=== PATIENT | female | born 1955 | race Caucasian/White ===

== ENCOUNTER → 2020-07-08 10:07 | Outpatient (CLI) | payer OTHER, SELFPAY ==
--- NOTE | 2020-07-08 | DI.RAD.S_ITS ---
PROCEDURE: XR DEXA AXIAL SKELETON INDICATIONS: Age-related osteoporosis without current pathologi COMPARISON: None. FINDINGS: This blank DEXA report has been sent in error by the PACS system. The correct and complete report will be forthcoming in 1-2 days. Thank you for your patience and understanding. Dictated by: Aura Grider MD, PhD on 07/08/2020 at 15:57 Approved by: Aura Grider MD, PhD on 07/08/2020 at 15:57
== END ==
PROVIDERS: Family Provider Family Medicine; PCP Family Medicine; Referring Provider Family Medicine; Visit Provider Family Medicine
DX: M81.0 Age-related osteoporosis without current pathological fracture (principal); Z78.0 Asymptomatic menopausal state; Z82.62 Family history of osteoporosis
CPT/HCPCS: 77080

== ENCOUNTER → 2021-10-27 10:32 | Outpatient (CLI) | payer MEDICARE, OTHER, SELFPAY ==
--- NOTE | 2021-10-27 10:36 | DI.RAD.S_ITS ---
PROCEDURE: XR THORACIC SPINE 2V INDICATIONS: BACK PAIN TECHNIQUE: 3 views of the thoracic spine were acquired. COMPARISON: None. FINDINGS: Bones: No fractures or dislocations. No suspicious bony lesions. 12 pairs of ribs are noted, and appear intact where visualized. Midthoracic disc space narrowing and anterior osteophytes noted. Soft tissues: No paravertebral stripe thickening. IMPRESSION: Mild degenerative disc disease without fracture or malalignment. Approved by: David Huerta M.D. on 10/27/2021 at 11:51
--- NOTE | 2021-10-27 10:36 | DI.RAD.S_ITS ---
PROCEDURE: XR LUMBAR SPINE 2-3V INDICATIONS: BACK PAIN TECHNIQUE: 3 views of the lumbar spine were acquired. COMPARISON: None. FINDINGS: Bones: 5 wea-uje-kwqzpbe vertebrae are present. There is nfob-sf-tjetsqqy rightward curvature of lumbar spine centered at L3 level. No vertebral body compression fractures. Degenerative endplate changes and bilateral facet arthrosis throughout lumbar spine is seen. No suspicious bony lesions. Soft tissues: Overlying bowel gas pattern is normal. No suspicious soft tissue calcifications. IMPRESSION: Knzj-ev-sdyfpmje scoliosis. No acute fracture or dislocation. Degenerative disc disease throughout lumbar spine. Dictated by: Latrell Norton M.D. on 10/27/2021 at 12:36 Approved by: Latrell Norton M.D. on 10/27/2021 at 12:36
--- NOTE | 2021-10-27 10:36 | DI.RAD.S_ITS ---
PROCEDURE: XR WRIST LT 2V INDICATIONS: LEFT WRIST PAIN TECHNIQUE: 2 views of the wrist were acquired. COMPARISON: None. FINDINGS: Bones: No fractures or dislocations. No suspicious bony lesions. Soft tissues: No suspicious soft tissue calcifications. IMPRESSION: No acute osseous abnormality. Dictated by: Aldo Olsen M.D. on 10/27/2021 at 12:06 Approved by: Aldo Olsen M.D. on 10/27/2021 at 12:07
== END ==
PROVIDERS: Family Provider Family Medicine; PCP Family Medicine; Referring Provider Family Medicine; Visit Provider Family Medicine
DX: M51.34 Other intervertebral disc degeneration, thoracic region (principal); M51.36 Other intervertebral disc degeneration, lumbar region; M25.532 Pain in left wrist; M54.9 Dorsalgia, unspecified
CPT/HCPCS: 72070; 72100; 73100

== ENCOUNTER → 2022-09-25 09:35 | Outpatient (CLI) | payer MEDICARE, OTHER, SELFPAY | PROVIDERS: Family Provider Family Medicine; PCP Family Medicine; Referring Provider Family Medicine; Visit Provider Family Medicine | DX: M81.0 Age-related osteoporosis without current pathological fracture (principal); Z78.0 Asymptomatic menopausal state | CPT/HCPCS: 77080 ==

== ENCOUNTER 2022-10-30 07:22 | Day surgery (SDC) | payer MEDICARE, OTHER, SELFPAY ==
--- NOTE | 2022-10-30 | PATH_ITS ---
[facility] Accession Number: [id number] No. of containers..02 Tissue . 01 Material submitted: . PART A: colon - CECAL POLYP PART B: colon - ASCENDING COLON POLYPS X2 . 01 Clinical history: . SCREENING COLONOSCOPY . 01 Diagnosis: A. Cecum, Polyp, Biopsy: Sessile serrated adenoma. . B. Ascending Colon, Polyps x2, Biopsies: Sessile serrated adenoma in three of multiple fragments. MRV 11/05/2022 1544 Local . 01 Electronically signed: . Carolann Linda MD, Pathologist NPI- [id number] . 01 Gross description: . A. Received in formalin, labeled with the patient's name, , and cecal polyp, and consists of two najera soft tissue fragments ranging from 0.3 cm to 0.4 cm in greatest dimension. Submitted entirely in cassette A1. B. Received in formalin, labeled with the patient's name, , and ascending polyps x2, and consists of multiple najera soft tissue fragments aggregating to 1.3 x 1.0 x 0.1 cm. The specimen is filtered into a biopsy bag and submitted entirely in cassette B1. ([id number]) /FRR 10/31/2022 1356 Local . 01 Pathologist provided ICD-10: D12.0, D12.2 . 01 CPT . 195867, 165491 Specimen Comment: A courtesy copy of this report has been sent to [facility] Pathology Performed at: 01 [facility] [address] [place] [address] [address] [facility], [place], [place] [id number] MD Mart Zavaleta MD Phone: [phone]
[2022-10-30 07:50] VITALS: BP 138/85; PULSE 68; RESP 16; TEMP 36.2; O2SAT 98; BMI 26.2
[2022-10-30] MEDS: LACTATED RINGERS 1,000 ML 150 ML IV (08:09)
--- NOTE | 2022-10-30 08:09 | SUR.PREOP ---
Patient diaphoretic after IV insertion; denies nausea, CP or SOB; placed patient supine and cool cloth provided. Recheck of BP 115/70; LR infusing to assist with drop in blood pressure.
--- NOTE | 2022-10-30 08:22 | P.HP_ITS ---
History of Present Illness History of Present Illness Date Patient Seen: 10/30/22 Chief complaint: Screening Colonoscopy Narrative: Ms. Saleh presents today for screening colonoscopy. Has had colonoscopy before 10 years ago and it was clean she was told to follow up in 10 years for carlos a nued screening. She has no family history of colon cancer no symptoms of bleeding or changes in bowel habits are that are concerning for her. Patient History Family & Social History Social History: household members spouse Tobacco & Substance use: Smoking Status Never smoker alcohol intake frequency holiday/special occasion Substance Use Type does not use Meds Home Medications and Allergies Allergies Allergy/AdvReac Type Severity Reaction Status Date / Time No Known Drug Allergies Allergy Verified 10/30/22 07:50 Exam Vital Signs (past 8 hours): - 10/30/22 07:50 Temperature 97.1 F L Pulse Rate 68 Respiratory Rate 16 Blood Pressure 138/85 Pulse Oximetry 98 Oxygen Delivery Method Room Air Oxygen Delivery Method Room Air Const General: cooperative, healthy appearing and comfortable HENMT Head: normal to inspection Eyes General: appearance normal, both eyes and all related structures Resp Effort & Inspection: normal respiratory effort and able to speak in complete sentences GI Palpation: soft and No tender Assessment & Plan Assessment and plan (1) Colon cancer screening: Status: Acute Assessment & Plan narrative: I discussed the risks benefits and alternatives of screening colonoscopy. She understands the risks including but not limited to perforation of the colon and incomplete exam. She would like to proceed today. Time Spent With Patient Critical Care time: I spent a total of [] minutes of critical care time on this patient's care today; this time is exclusive of procedural time.
[2022-10-30 09:02] VITALS: BP 106/61; PULSE 65; RESP 16; TEMP 36.2; O2SAT 98
[2022-10-30 09:08] VITALS: BP 98/57; PULSE 64; RESP 15; O2SAT 95
--- NOTE | 2022-10-30 09:13 | PM.OP.COLON ---
Procedure & Clinicians Study performed: Colonoscopy and biopsy Same procedure as scheduled: Yes Indications: Screening for colon cancer. No family history or increased risk. Surgeon: Alison oCllins Procedure Notes Procedure in detail: Patient was taken to the endoscopy suite and placed in a left lateral decubitus position. A time-out was performed. With the help of an anesthesiologist conscious sedation was performed. Digital rectal exam was performed and there were no strictures or masses. The colonoscope was introduced into the anal canal and advanced through to the cecum. A photograph was taken of the appendiceal orifice. There was a small polyp right next to the appendiceal orifice which was biopsied and removed in total with the forceps. Upon withdrawal there were 2 additional polyps right at the junction of the cecum and the ascending colon. They were possibly of 0.9 cm in length but were both oblong shaped, and were quite narrow. Several sweeps with a biopsy forceps remove both disease polyps in total. They were sent together in the same specimen jar. Continued withdrawal of the scope revealed no further polyps. The total withdrawal time was 19 minutes. And some photographs were taken of a few scattered diverticula in the sigmoid colon. As well as a photograph of hemorrhoidal piles seen on retroflexion. The scope was then withdrawn. Patient tolerated the procedure well and went in good condition to the postoperative care unit the [place] bowel prep score was 3, she had an excellent prep. Specimen(s): other (1. Cecal polyp 2. Ascending colon polyps x2)
[2022-10-30 09:16] VITALS: BP 114/65; PULSE 59; RESP 12; O2SAT 99
== END 2022-10-30 09:30 | disposition home or self-care (01) ==
PROVIDERS: Family Provider Family Medicine; PCP Family Medicine; Referring Provider Surgery; Visit Provider Surgery
PROC: 0DJD8ZZ Inspection of Lower Intestinal Tract, Via Natural or Artificial Opening Endoscopic (ICD-10-PCS; CPT 45378; principal; 2022-10-30 08:30)
DX: Z12.11 Encounter for screening for malignant neoplasm of colon (principal); K57.30 Diverticulosis of large intestine without perforation or abscess without bleeding; K64.4 Residual hemorrhoidal skin tags; D12.0 Benign neoplasm of cecum; D12.2 Benign neoplasm of ascending colon
CPT/HCPCS: 45380; J2704; J3010

== ENCOUNTER → 2024-05-09 11:41 | Outpatient (CLI) | payer MEDICARE, OTHER, SELFPAY ==
--- NOTE | 2024-05-09 11:44 | DI.RAD.S_ITS ---
PROCEDURE: XR ELBOW RT MIN 3V INDICATIONS: Medial epicondylitis, right elbow TECHNIQUE: 3 views of the elbow were acquired. COMPARISON: None. FINDINGS: Bones: No fractures or dislocations. No suspicious bony lesions. Soft tissues: No elbow joint effusion. No suspicious soft tissue calcifications. IMPRESSION: No acute bony abnormality or significant joint effusion. Dictated by: Jb Coon M.D. on 05/09/2024 at 15:40 Approved by: Jb Coon M.D. on 05/09/2024 at 15:41
== END ==
LOC: RAD 11:42
PROVIDERS: Family Provider Family Medicine; PCP Family Medicine; Referring Provider Family Medicine; Visit Provider Family Medicine
DX: M77.01 Medial epicondylitis, right elbow (principal)
CPT/HCPCS: 73080

== ENCOUNTER → 2024-09-15 09:30 | Outpatient (CLI) | payer MEDICARE, OTHER, SELFPAY ==
--- NOTE | 2024-09-15 | DI.RAD.S_ITS ---
PROCEDURE: XR DEXA AXIAL SKELETON INDICATIONS: Age-related osteoporosis without current pathological fractu COMPARISON: [facility], CR, XR DEXA AXIAL SKELETON, 09/25/2022, 9:59. FINDINGS: Lumbar Spine: Bone mineral density 0.749 g/cm2, T score -2.7. There is interval 3.6 percent decrease in total lumbar spine bone mineral density. Left Hip: Bone mineral density 0.748 g/cm2, T score -1.6. There is interval 3.8 percent decrease in left total hip bone mineral density. Left Femoral Neck: Bone mineral density 0.602 g/cm2, T score -2.2. There is interval 10.6 percent decrease in left femoral neck bone mineral density. Right Hip: Bone mineral density 0.757 g/cm2, T score -1.5. There is interval 0.4 percent decrease in right total hip bone mineral density. Right Femoral Neck: Bone mineral density 0.630 g/cm2, T score -2.0. There is interval 4.4 percent increase in right total hip bone mineral density. Fracture Risk Calculation (when applicable): 10-year fracture risk of a major osteoporotic fracture 20 percent and of a hip fracture 4.0 percent. (T score greater or equal to -1.0 to: NORMAL) (T score from -1.1 to -2.4: OSTEOPENIA) (T score less than or equal to -2.5: OSTEOPOROSIS) IMPRESSION: Osteopenia. Follow-up guidelines as follows: Osteoporosis: Consider a repeat DEXA and Vertebral Fracture Assessment (VFA) exam in 2 years or sooner if medically necessary, to reassess this patient's status. Osteopenia: Consider a repeat DEXA in 2-3 years to reassess this patient's status, or if there is a new clinical indication. Normal: Consider a repeat DEXA in 5 years or sooner, or if there is a new clinical indication. All treatment decisions require clinical judgment and consideration of individual patient factors, including patient preferences, comorbidities, previous drug use, risk factors not captured in the FRAX model (e.g., frailty, falls, vitamin D deficiency, increased bone turnover, interval significant decline in bone density ) and possible under- or over-estimation of fracture risk by FRAX. In addition, the NOF Guide recommends that FDA-approved medical therapies be considered in postmenopausal women and men age >= 50 years with a: * Hip or vertebral (clinical or morphometric) fracture * T-score of <=-2.5 at the spine or hip * Ten-year fracture probability by FRAX of >= 3% for hip fracture or >=20% for major osteoporotic fracture. People with diagnosed cases of osteoporosis or at high risk for fracture should have regular bone mineral density tests. For patients eligible for Medicare, routine testing is allowed once every 2 years. The testing frequency can be increased to one year for patients who have rapidly progressing disease, those who are receiving or discontinuing medical therapy to restore bone mass, or have additional risk factors. Dictated by: Latrell Norton M.D. on 09/15/2024 at 14:00 Approved by: Latrell Norton M.D. on 09/15/2024 at 14:02
== END ==
PROVIDERS: Family Provider Family Medicine; PCP Family Medicine; Referring Provider Family Medicine; Visit Provider Family Medicine
DX: M81.0 Age-related osteoporosis without current pathological fracture (principal)
CPT/HCPCS: 77080